=== PATIENT | male | born 1980 | race Native Hawaiian/Other Pacific Islander ===

== ENCOUNTER 2016-10-29 13:14 | Emergency (ER) | payer OTHER ==
[2016-10-29] MEDS ORDERED: BENADRYL 50 MG/ML IV ONE (13:44)
[2016-10-29] MEDS ORDERED: Hydromorphone 1 mg/ml Ampule IV ONE (13:44)
--- NOTE | 2016-10-29 13:58 | ERPHSYRPT ---
- History of Present Illness Time Seen by Provider: 10/29/16 13:34 Source: patient Patient Subjective Stated Complaint: PT STATES THAT HE NOTICED A "BITE" TO THE RIGHT SIDE OF. HIS NECK YESTERDAY STATES HE TRIED TO POP IT TODAY STATES "IT FELT LIKE SOMETHING POPPED BACK IN MY THROAT" STATES HE THINKS HE HAS BEEN RUNNING A FEVER Triage Nursing Assessment: PT ALERT WARM AND DRY RESP EASY NON LABORED WOUND. NOTED TO RIGHT SIDE OF NECK BLEEDING OR DRAINAGE NOTED AT THIS TIME. Physician History: CC: right neck swelling Hx: 36 y/o patient from [place] here working at the [employer]. He noted what he thought was a bite on right neck. Some burning, pain, redness and swelling. No other bites or skin lesions. Tetanus vaccine up to date. He squeezed the area, felt the pus went inside neck and then some trouble swallowing. No fever or chills. Timing/Duration: day(s) (1) Quality: burning, painful Allergies/Adverse Reactions: Penicillins Allergy (Verified 10/29/16 13:23) Hx Tetanus, Diphtheria Vaccination/Date Given: Yes Hx Influenza Vaccination/Date Given: No Hx Pneumococcal Vaccination/Date Given: No Immunizations Up to Date: Yes - Review of Systems Constitutional: No Fever, No Chills Eyes: No Vision Changes Ears, Nose, & Throat: Painful Swallowing Respiratory: No Dyspnea Cardiac: No Chest Pain Abdominal/Gastrointestinal: No Abdominal Pain, No Nausea, No Vomiting Skin: Skin Lesions (right neck), No Rash Neurological: No Focal Weakness, No Headache, No Parasthesia All Other Systems: Reviewed and Negative - Past Medical History Pertinent Past Medical History: No - Past Surgical History Past Surgical History: Yes Other Surgical History: LEFT FOREARM - Social History Smoking Status: Current every day smoker How long have you smoked: 1 PPD Exposure to second hand smoke: Yes Drug Use: none Patient Lives Alone: No - Nursing Vital Signs Nursing Vital Signs: Initial Vital Signs Temperature 97.3 F Temperature Source Oral Pulse Rate 78 Respiratory Rate 16 Blood Pressure [Right Arm] 143/73 Pain Intensity 5 - Physical Exam General Appearance: alert Eye Exam: PERRL/EOMI Ears, Nose, Throat Exam: normal ENT inspection, moist mucous membranes Neck Exam: supple, other (right anterior skin lesion with scab and underlying induration, tender, no pus drng) Respiratory Exam: normal breath sounds, lungs clear Cardiovascular Exam: regular rate/rhythm Gastrointestinal/Abdomen Exam: soft, No tenderness, No distention Male Genitalia Exam: normal genitalia Back Exam: normal inspection, normal range of motion Extremity Exam: normal inspection, normal range of motion Neurologic Exam: alert, oriented x 3, cooperative, sensation nml, No motor deficits Skin Exam: warm, dry SpO2 Interpretation: normal SpO2: 100 Oxygen Delivery: Room Air - Course Nursing assessment & vital signs reviewed: Yes Ordered Tests: Active Orders 24 hr Category Date Time Status IV Insertion STAT Care 10/29/16 13:44 Active NPO (ED) STAT Care 10/29/16 13:44 Active NECK WITH CONTRAST [CT] Stat Exams 10/29/16 13:45 Completed CBC W DIFF Stat Lab 10/29/16 13:59 Completed CMP Stat Lab 10/29/16 13:59 Completed Medication Summary Discontinued Medications Generic Name Dose Route Start Last Admin Trade Name Freq PRN Reason Stop Dose Admin Diphenhydramine HCl 25 mg 10/29/16 13:44 10/29/16 14:23 Benadryl 50 Mg/Ml IV 10/29/16 13:45 25 mg STAT ONE Administration Diphenhydramine HCl Confirm 10/29/16 14:22 Benadryl 50 Mg/Ml Administered 10/29/16 14:23 Dose 50 mg .ROUTE .STK-MED ONE Hydromorphone HCl 1 mg 10/29/16 13:44 10/29/16 14:23 Hydromorphone 1 Mg/Ml Ampule IV 10/29/16 13:45 1 mg STAT ONE Administration Hydromorphone HCl Confirm 10/29/16 14:22 Hydromorphone 1 Mg/Ml Ampule Administered 10/29/16 14:23 Dose 1 mg .ROUTE .STK-MED ONE Lab/Rad Data: Laboratory Result Diagrams 10/29/16 13:59 10/29/16 13:59 Laboratory Results 10/29/16 10/29/16 Range/Units 13:59 13:59 WBC 11.9 H (4.0-10.5) K/mm3 RBC 4.83 (4.1-5.6) M/mm3 Hgb 15.5 (12.5-18.0) gm/dl Hct 48.4 (42-50) % MCV 100.2 H (78-100) fl MCH 32.1 H (26-32) pg MCHC 32.0 (32-36) g/dl RDW 14.0 (11.5-14.0) % Plt Count 307 (150-450) K/mm3 MPV 9.9 H (6-9.5) fl Gran % 64.0 (36.0-66.0) % Lymphocytes % 21.7 L (24.0-44.0) % Monocytes % 6.7 (0.0-12.0) % Eosinophils % 7.2 H (0.00-5.0) % Basophils % 0.4 (0.0-0.4) % Basophils # 0.05 (0-0.4) Sodium 150 H* (136-145) mEq/L Potassium 4.0 (3.5-5.1) mEq/L Chloride 109 H (98-107) mEq/L Carbon Dioxide 27.5 (21-32) mEq/L Anion Gap 17.2 H (5-15) MEQ/L BUN 9 (9-20) mg/dL Creatinine 1.10 (0.55-1.30) mg/dl Estimated GFR > 60 ML/MIN Glucose 85 (70-110) MG/DL Calcium 9.3 (8.5-10.1) mg/dL Total Bilirubin 0.4 (0.2-1.0) mg/dL AST 19 (15-37) U/L ALT 36 (12-78) U/L Alkaline Phosphatase 95 (46-116) U/L Serum Total Protein 7.8 (6.4-8.2) gm/dL Albumin 4.0 (3.4-5.0) g/dL - Progress Progress Note: 10/29/16 15:46 [id number] CT/NECK WITH CONTRAST Indication: Right neck abscess. Multiple contiguous axial images obtained through the neck using 60 cc Isovue 370 contrast. Cutaneous marker placed over the region of interest. Comparison: None Cutaneous marker is seen right mid anterior lateral neck at the level of the hyoid. There is very minimal underlying cutaneous and subcutaneous induration suggesting inflammation. No suspicious solid/cystic mass. Scattered small nonpathologic cervical and submandibular nodes bilaterally. Parotid and submandibular glands are bilaterally symmetric. Major arteries and veins are normal in course and caliber. Thyroid gland enhances homogeneously. Supra and infraglottic airway widely patent. Normal epiglottis and cervical spine. Patient is edentulous. Base of the brain and lung apices unremarkable. Impression: Small focus inflammation right mid neck presumed cellulitis. No underlying abnormal fluid collection/abscess or pathologic lymphadenopathy. CT DI 24.74 Reported by: YSABEL CASTRO DO Signed by: YSABEL CASTRO DO Signed date/ time: 10/29/16 1433 Rx cleocin/norco/warm compresses. No abscess to drain. Instr given. Counseled pt/family regarding: lab results, diagnosis, need for follow-up, rad results - Departure Time of Disposition: 15:46 Departure Disposition: Home Clinical Impression: right neck cellulitis Condition: Stable Critical Care Time: No Referrals: DOCTOR,NO FAMILY [Primary Care Provider] - Instructions: Cellulitis -- Adult Additional Instructions: Warm compresses four times a day. Rx cleocin. Rx norco- no driving today or while taking. Return for difficult breathing, swallowing, fever, worsening. Follow up with your family doctor in [place]. Prescriptions: Hydrocodone Bit/Acetaminophen [Kane 5-325 Tablet] 1 each PO Q6H PRN PRN #15 tablet PRN Reason: Pain Clindamycin HCl 1 cap PO QID #40 capsule
[2016-10-29 14:03] LABS: BASOPHIL % 0.4 % (0.0-0.4); Eosinophil % 7.2 % (0.00-5.0); Lymphocytes % 21.7 % (24.0-44.0); Mean Cell Volume 100.2 fl (78-100); Mean Corpuscular Hemoglobin 32.1 pg (26-32); Mean Platelet Volume 9.9 fl (6-9.5); Monocytes % 6.7 % (0.0-12.0); Platelet Count 307 K/mm3 (150-450); Red Blood Count 4.83 M/mm3 (4.1-5.6); White Blood Count 11.9 K/mm3 (4.0-10.5)
[2016-10-29] MEDS ORDERED: BENADRYL 50 MG/ML ONE (14:22)
[2016-10-29] MEDS ORDERED: Hydromorphone 1 mg/ml Ampule ONE (14:22)
[2016-10-29 14:33] LABS: ALKALINE PHOSPHATASE 95 U/L (46-116); ANION GAP 17.2 MEQ/L (5-15); BILIRUBIN,TOTAL 0.4 mg/dL (0.2-1.0); BLOOD UREA NITROGEN 9 mg/dL (9-20); CHLORIDE 109 mEq/L (98-107); Carbon Dioxide 27.5 mEq/L (21-32); Glucose 85 MG/DL (70-110); SGOT/AST 19 U/L (15-37); SGPT/ALT 36 U/L (12-78); Total Protein 7.8 gm/dL (6.4-8.2)
--- NOTE | 2016-10-29 14:33 | XRAY ---
Indication: Right neck abscess. Multiple contiguous axial images obtained through the neck using 60 cc Isovue 370 contrast. Cutaneous marker placed over the region of interest. Comparison: None Cutaneous marker is seen right mid anterior lateral neck at the level of the hyoid. There is very minimal underlying cutaneous and subcutaneous induration suggesting inflammation. No suspicious solid/cystic mass. Scattered small nonpathologic cervical and submandibular nodes bilaterally. Parotid and submandibular glands are bilaterally symmetric. Major arteries and veins are normal in course and caliber. Thyroid gland enhances homogeneously. Supra and infraglottic airway widely patent. Normal epiglottis and cervical spine. Patient is edentulous. Base of the brain and lung apices unremarkable. Impression: Small focus inflammation right mid neck presumed cellulitis. No underlying abnormal fluid collection/abscess or pathologic lymphadenopathy. CT DI 24.74
[2016-10-29 14:43] LABS: SODIUM 150 mEq/L (136-145)
[2016-10-29 15:52] VITALS: O2SAT 100
[2016-10-29 16:15] VITALS: BP 132/92; PULSE 76
== END 2016-10-29 16:16 | disposition home or self-care (01) ==
LOC: ED 13:14
DX: L03.221 Cellulitis of neck (principal); M54.2 Cervicalgia
CPT/HCPCS: 36000; 36415; 70491; 80053; 85025; 96374; 96375; 99284; J1170; J1200